=== PATIENT | female | born 1970 | race Caucasian/White ===

== ENCOUNTER 2016-11-12 19:14 | Emergency (ER) | payer SELFPAY ==
[~2016-11-12] VITALS: Ht 157.5 cm; Wt 60.0 kg
[~2016-11-12 19:14] MED LIST: ACID1TAB7 PO; ASPI-621 PO; ATOR10TA PO; AZIT500T4 PO; CARI350T PO; CEFD300C2 PO; CIPR500T3 PO; CLON0.5T PO; CLON1TAB; CYCL-259 PO; CYCL5TAB PO; DIAZ5TAB4 PO; ERGO500017 PO; ESTR0.6246 PO; FLUO20CA19 PO; GABA100C8 PO; GABA300C10 PO; GABA600T2 PO; HYDR-882 PO; LEVO750T26 PO; MECL-76 PO; METR500T PO; NAPR500T3 PO; OMEP20CA9 PO; ONDA4TAB10 PO; ONDA4TAB7 PO; OXYC-223 PO; OXYC-229 PO; OXYC-74; OXYC1TAB7 PO; OXYC5CAP4 PO; PARO10TA3 PO; POTA40LI3 PO; PREG150C PO; PREG75CA PO; SIMV20TA3 PO; SUMA100T4 PO; SUMA50TA3 PO; TIZA4TAB PO; TRAM50TA2 PO; TRAZ100T15 PO; VERA80TA2 PO; VITAMIN B-12 PO; ZIPR20CA2 PO; ZOLP-413 PO; ibuprofen PO
[2016-11-12] MEDS ORDERED: SODIUM CHLORIDE 0.9% 1,000ML IVBOLUS ONE (20:00)
[2016-11-12] MEDS ORDERED: SODIUM CHLORIDE FLUSH 10ML SYR IVF ONE (20:00)
[2016-11-12] MEDS ORDERED: ONDANSETRON 2MG/ML, 2ML IVP ONE (20:00)
[2016-11-12] MEDS ORDERED: DEXTROMETHORPHAN 30 MG/5 ML ORAL SOL PO PRN (20:00)
[2016-11-12] MEDS ORDERED: ONDANSETRON 2MG/ML, 2ML ONE (20:13)
[2016-11-12 20:18] LABS: HEMOGLOBIN 12.9 g/dL (11.7-16.4)
[2016-11-12 20:24] LABS: BLOOD UREA NITROGEN 14 mg/dL (7-18)
[2016-11-12] MEDS ORDERED: POTASSIUM CHLORIDE 20 MEQ TAB.ER.PRT PO ONE (21:00)
[2016-11-12] MEDS ORDERED: POTASSIUM CHLORIDE 20 MEQ TAB.ER.PRT ONE (21:05)
[2016-11-12 21:33] VITALS: BP 121/74
== END 2016-11-12 21:35 | disposition home or self-care (01) ==
LOC: ED 20:18
DX: J20.8 Acute bronchitis due to other specified organisms (principal); K21.9 Gastro-esophageal reflux disease without esophagitis; G43.909 Migraine, unspecified, not intractable, without status migrainosus; Z87.440 Personal history of urinary (tract) infections
CPT/HCPCS: 36415; 71010; 80048; 82040; 85025; 93005; 96361; 96374; 99285; J2405; J7030

== ENCOUNTER 2017-01-07 01:54 | Emergency (ER) | payer MEDICAID ==
[~2017-01-07] VITALS: Ht 157.5 cm; Wt 55.4 kg
[~2017-01-07 01:54] MED LIST changes: -AZIT500T4 PO; +AZIT500T77 PO; -CEFD300C2 PO; +CEFD300C37 PO
[2017-01-07] MEDS ORDERED: PROCHLORPERAZINE 5 MG/ML, 2ML IVPush ONE (02:30)
[2017-01-07] MEDS ORDERED: SODIUM CHLORIDE 0.9% 1,000ML IVBOLUS ONE (02:30)
[2017-01-07] MEDS ORDERED: KETOROLAC 30 MG/1 ML IVPush ONE (02:30)
[2017-01-07] MEDS ORDERED: DIPHENHYDRAMINE 50 MG/ML, 1ML IVPush ONE (02:30)
[2017-01-07] MEDS ORDERED: DIPHENHYDRAMINE 50 MG/ML, 1ML ONE (02:46)
[2017-01-07] MEDS ORDERED: KETOROLAC 30 MG/1 ML ONE (02:46)
[2017-01-07] MEDS ORDERED: PROCHLORPERAZINE 5 MG/ML, 2ML ONE (02:46)
[2017-01-07] MEDS ORDERED: HYDROcodone/APAP 5/325 TABLET PO ONE (04:00)
[2017-01-07] MEDS ORDERED: ZIPRASIDONE 20 MG INJ IM ONE ×2 (04:00→04:24)
[2017-01-07] MEDS ORDERED: HYDROcodone/APAP 5/325 TABLET ONE (04:24)
[2017-01-07 05:28] VITALS: BP 98/66
== END 2017-01-07 05:30 | disposition home or self-care (01) ==
LOC: ED 03:45
DX: M54.5 Low back pain (principal); G43.009 Migraine without aura, not intractable, without status migrainosus; K21.9 Gastro-esophageal reflux disease without esophagitis
CPT/HCPCS: 96361; 96372; 96374; 96375; 99285; J0780; J1200; J3486; J7030

== ENCOUNTER → 2017-03-06 | Outpatient (CLI) | payer MEDICAID ==
[~2017-03-06] MED LIST changes: +GABA-826 PO; -GABA100C8 PO
== END | disposition home or self-care (01) ==
LOC: CFH 07:52
PROVIDERS: ATTEND Surgery
DX: D17.79 Benign lipomatous neoplasm of other sites (principal); E07.9 Disorder of thyroid, unspecified; K43.2 Incisional hernia without obstruction or gangrene; K21.9 Gastro-esophageal reflux disease without esophagitis; I44.2 Atrioventricular block, complete; F32.9 Major depressive disorder, single episode, unspecified; M25.552 Pain in left hip; M25.551 Pain in right hip; R20.0 Anesthesia of skin; Z87.19 Personal history of other diseases of the digestive system; Z90.3 Acquired absence of stomach [part of]; Z90.49 Acquired absence of other specified parts of digestive tract
CPT/HCPCS: 72125; 76700

== ENCOUNTER 2017-04-11 04:20 | Emergency (ER) | payer MEDICAID ==
[~2017-04-11] VITALS: Ht 157.5 cm; Wt 56.3 kg
[~2017-04-11 04:20] MED LIST changes: +AZIT500T5 PO; -AZIT500T77 PO; -OXYC-223 PO; -OXYC-229 PO; +OXYC-296; +OXYC-306 PO; +OXYC-307 PO; -OXYC-74; +OXYC5CAP2 PO; -OXYC5CAP4 PO
[2017-04-11] MEDS ORDERED: ONDANSETRON 2MG/ML, 2ML IVPush ONE (05:00)
[2017-04-11] MEDS ORDERED: SODIUM CHLORIDE FLUSH 10ML SYR IVF ONE (05:00)
[2017-04-11] MEDS ORDERED: ONDANSETRON 2MG/ML, 2ML ONE (05:10)
[2017-04-11] MEDS ORDERED: MORPHINE SULFATE 4 MG/ML, 1ML ONE ×2 (05:10→06:46)
[2017-04-11] MEDS: MORPHINE SULFATE 4 MG/ML, 1ML IVPush PRN ×2 (05:13→06:48)
[2017-04-11 05:50] LABS: WHITE BLOOD COUNT 5.7 x10^3/uL (3.4-10)
[2017-04-11 06:04] LABS: BLOOD UREA NITROGEN 19 mg/dL (7-18)
[2017-04-11 06:15] LABS: IS PT STATUS REG ER OR PRE ER? YES
[2017-04-11 06:50] VITALS: BP 111/78
== END 2017-04-11 07:41 | disposition home or self-care (01) ==
LOC: ED 07:16
DX: R07.89 Other chest pain (principal); G89.29 Other chronic pain; G43.909 Migraine, unspecified, not intractable, without status migrainosus; Z88.0 Allergy status to penicillin
CPT/HCPCS: 36415; 71010; 80048; 82040; 83880; 84484; 85025; 85379; 93005; 96374; 96375; 96376; 99285; J2405

== ENCOUNTER 2017-05-06 19:38 | Inpatient (IN) | payer MEDICAID ==
[~2017-05-06] VITALS: Ht 157.5 cm; Wt 51.0 kg
[2017-05-06] MEDS ORDERED: SODIUM CHLORIDE 0.9% 1,000 ML IV ONE (20:21)
[2017-05-06] MEDS ORDERED: HYDROmorphone 1 MG/ML, 1ML ONE (20:21)
[2017-05-06] MEDS ORDERED: ONDANSETRON 2MG/ML, 2ML ONE (20:22)
[2017-05-06] MEDS: HYDROmorphone 1 MG/ML, 1ML IVPush PRN ×2 (20:26→21:38)
[2017-05-06] MEDS ORDERED: ONDANSETRON 2MG/ML, 2ML IVPush ONE (20:30)
[2017-05-06] MEDS ORDERED: SODIUM CHLORIDE 0.9% 1,000ML IVBOLUS ONE (20:30)
[2017-05-06] MEDS ORDERED: SODIUM CHLORIDE FLUSH 10ML SYR IVF ONE (20:30)
[2017-05-06 20:41] LABS: HEMATOCRIT 35.5 % (34.6-47.8); HEMOGLOBIN 11.8 g/dL (11.7-16.4); WHITE BLOOD COUNT 5.7 x10^3/uL (3.4-10)
[2017-05-06 20:46] LABS: ASPARTATE AMINO TRANSFERASE 16 U/L (15-37); BLOOD UREA NITROGEN 19 mg/dL (7-18)
[2017-05-07] MEDS ORDERED: SODIUM CHLORIDE 0.9% 1,000 ML IV ONE (00:03)
[2017-05-07] MEDS ORDERED: CEFTRIAXONE PMX 1GM/50ML 50 ML ONE (00:57)
[2017-05-07] MEDS: SIMVASTATIN 20 MG TABLET PO SCH ×2 (01:00→20:57)
[2017-05-07] MEDS: CEFTRIAXONE PMX 1GM/50ML 50 ML IV SCH (01:00)
[2017-05-07 02:03] VITALS: BP 119/89
[2017-05-07] MEDS: SODIUM CHLORIDE 0.9% 1,000 ML IV SCH ×2 (02:09→09:03)
[2017-05-07] MEDS: METRONIDAZOLE PMX 500MG/100ML 100 ML IV SCH ×3 (02:49→18:38)
[2017-05-07] MEDS: ONDANSETRON 2MG/ML, 2ML IVPush PRN ×3 (02:49→20:58)
[2017-05-07] MEDS: morphine SULFATE 10 MG/ML, 1ML IVPush PRN ×3 (02:49→20:58)
[2017-05-07] MEDS ORDERED: OMNIPAQUE 350 MG/ML, 100ML BOTTLE ONE (04:48)
[2017-05-07] MEDS: HEPARIN 5,000 UNITS/ML, 1ML SQ SCH ×3 (05:00→20:58)
[2017-05-07 05:24] LABS: BLOOD UREA NITROGEN 14 mg/dL (7-18); HEMATOCRIT 32.9 % (34.6-47.8); HEMOGLOBIN 11.1 g/dL (11.7-16.4); WHITE BLOOD COUNT 5.8 x10^3/uL (3.4-10)
[2017-05-07 05:27] LABS: ASPARTATE AMINO TRANSFERASE 19 U/L (15-37)
[2017-05-07 09:11] VITALS: BP 114/77
[2017-05-07] MEDS ORDERED: POTASSIUM CHLORIDE 40 MEQ in SODIUM CHLORIDE 0.9% 500 ML IV ONE (10:00)
[2017-05-07] MEDS: PREGABALIN 150 MG CAPSULE PO SCH ×2 (10:05→20:57)
[2017-05-07] MEDS: FLUOXETINE 20 MG CAPSULE PO SCH (10:05)
[2017-05-07] MEDS: ASPIRIN 81 MG TABLET EC PO SCH (10:05)
[2017-05-07] MEDS: SUMATRIPTAN 50 MG TABLET PO PRN (11:37)
[2017-05-07 13:15] VITALS: BP 132/97
[2017-05-07 18:50] VITALS: BP 109/73
[2017-05-08 00:22] VITALS: BP 133/93
[2017-05-08] MEDS: morphine SULFATE 10 MG/ML, 1ML IVPush PRN ×3 (00:59→21:25)
[2017-05-08] MEDS: CEFTRIAXONE PMX 1GM/50ML 50 ML IV SCH (00:59)
[2017-05-08] MEDS: SODIUM CHLORIDE 0.9% 1,000 ML IV SCH ×3 (01:00→21:10)
[2017-05-08] MEDS: SUMATRIPTAN 50 MG TABLET PO PRN ×2 (02:43→21:10)
[2017-05-08] MEDS: HEPARIN 5,000 UNITS/ML, 1ML SQ SCH ×3 (03:33→21:10)
[2017-05-08] MEDS: METRONIDAZOLE PMX 500MG/100ML 100 ML IV SCH ×3 (03:47→21:10)
[2017-05-08 05:00] LABS: HEMATOCRIT 32.7 % (34.6-47.8); WHITE BLOOD COUNT 4.9 x10^3/uL (3.4-10)
[2017-05-08 05:11] LABS: BLOOD UREA NITROGEN 6 mg/dL (7-18)
[2017-05-08] MEDS ORDERED: POTASSIUM CHLORIDE 40 MEQ in SODIUM CHLORIDE 0.9% 500 ML IV ONE (06:30)
[2017-05-08 06:39] VITALS: BP 125/86
[2017-05-08] MEDS ORDERED: ACETAMINOPHEN 325 MG TABLET ONE (07:55)
[2017-05-08] MEDS: FLUOXETINE 20 MG CAPSULE PO SCH (07:58)
[2017-05-08] MEDS: ASPIRIN 81 MG TABLET EC PO SCH (07:58)
[2017-05-08] MEDS: PREGABALIN 150 MG CAPSULE PO SCH ×2 (07:58→21:09)
[2017-05-08] MEDS ORDERED: ACETAMINOPHEN 325 MG TABLET PO PRN (08:00)
[2017-05-08 14:15] VITALS: BP 121/77
[2017-05-08] MEDS: ONDANSETRON 2MG/ML, 2ML IVPush PRN ×2 (16:28→21:25)
[2017-05-08] MEDS ORDERED: BUTALB/APAP/CAFFEINE 50MG/325MG/40MG PO PRN (19:30)
[2017-05-08] MEDS: HYDROcodone/APAP 5/325 TABLET PO PRN (19:34)
[2017-05-08 19:48] VITALS: BP 114/78
[2017-05-08] MEDS: SIMVASTATIN 20 MG TABLET PO SCH (21:09)
[2017-05-08] MEDS: BUTALB/APAP/CAFFEINE 50MG/325MG/40MG PO PRN (23:49)
[2017-05-09] MEDS: CEFTRIAXONE PMX 1GM/50ML 50 ML IV SCH (01:36)
[2017-05-09 02:00] VITALS: BP 137/92
[2017-05-09] MEDS: METRONIDAZOLE PMX 500MG/100ML 100 ML IV SCH ×3 (03:49→19:57)
[2017-05-09] MEDS: HEPARIN 5,000 UNITS/ML, 1ML SQ SCH ×3 (05:00→23:01)
[2017-05-09 05:01] LABS: HEMATOCRIT 33.5 % (34.6-47.8); HEMOGLOBIN 11.2 g/dL (11.7-16.4)
[2017-05-09 05:12] LABS: BLOOD UREA NITROGEN 4 mg/dL (7-18)
[2017-05-09] MEDS: SODIUM CHLORIDE 0.9% 1,000 ML IV SCH ×3 (06:26→21:43)
[2017-05-09] MEDS ORDERED: POTASSIUM CHLORIDE 40 MEQ in SODIUM CHLORIDE 0.9% 500 ML IV ONE (07:00)
[2017-05-09 08:41] VITALS: BP 118/78
[2017-05-09] MEDS: ONDANSETRON 2MG/ML, 2ML IVPush PRN (09:05)
[2017-05-09] MEDS: morphine SULFATE 10 MG/ML, 1ML IVPush PRN (09:55)
[2017-05-09] MEDS: ASPIRIN 81 MG TABLET EC PO SCH (09:56)
[2017-05-09] MEDS: PREGABALIN 150 MG CAPSULE PO SCH ×2 (09:56→19:57)
[2017-05-09] MEDS: FLUOXETINE 20 MG CAPSULE PO SCH (09:56)
[2017-05-09] MEDS: BUTALB/APAP/CAFFEINE 50MG/325MG/40MG PO PRN (12:43)
[2017-05-09 13:43] VITALS: BP 130/90
[2017-05-09] MEDS ORDERED: DIPHENHYDRAMINE 50 MG/ML, 1ML IVPush PRN (16:00)
[2017-05-09] MEDS ORDERED: PROCHLORPERAZINE 5 MG/ML, 2ML IVPush PRN (16:00)
[2017-05-09] MEDS: SIMVASTATIN 20 MG TABLET PO SCH (19:57)
[2017-05-09 20:00] VITALS: BP 116/74
[2017-05-09] MEDS: HYDROcodone/APAP 5/325 TABLET PO PRN (21:11)
[2017-05-10] MEDS: CEFTRIAXONE PMX 1GM/50ML 50 ML IV SCH (00:59)
[2017-05-10 02:00] VITALS: BP 106/71
[2017-05-10] MEDS: METRONIDAZOLE PMX 500MG/100ML 100 ML IV SCH ×3 (02:55→20:26)
[2017-05-10] MEDS: HYDROcodone/APAP 5/325 TABLET PO PRN ×4 (04:49→20:43)
[2017-05-10 06:21] LABS: ASPARTATE AMINO TRANSFERASE 13 U/L (15-37); BLOOD UREA NITROGEN 5 mg/dL (7-18)
[2017-05-10 07:37] VITALS: BP 124/82
[2017-05-10] MEDS: SODIUM CHLORIDE 0.9% 1,000 ML IV SCH ×2 (07:45→16:15)
[2017-05-10] MEDS: PREGABALIN 150 MG CAPSULE PO SCH ×2 (07:46→20:26)
[2017-05-10] MEDS: FLUOXETINE 20 MG CAPSULE PO SCH (07:46)
[2017-05-10] MEDS: ASPIRIN 81 MG TABLET EC PO SCH (07:46)
[2017-05-10] MEDS: HEPARIN 5,000 UNITS/ML, 1ML SQ SCH ×2 (07:48→16:14)
[2017-05-10] MEDS: SUMATRIPTAN 50 MG TABLET PO PRN (11:46)
[2017-05-10 14:05] VITALS: BP 130/87
[2017-05-10 19:53] VITALS: BP 110/73
[2017-05-10] MEDS: SIMVASTATIN 20 MG TABLET PO SCH (20:26)
[2017-05-10] MEDS: TIZANIDINE 4MG TABLET PO PRN (20:43)
[2017-05-10] MEDS: ONDANSETRON 2MG/ML, 2ML IVPush PRN (21:32)
[2017-05-11] MEDS: SODIUM CHLORIDE 0.9% 1,000 ML IV SCH ×3 (00:49→17:49)
[2017-05-11] MEDS: HEPARIN 5,000 UNITS/ML, 1ML SQ SCH ×3 (00:49→20:47)
[2017-05-11] MEDS: CEFTRIAXONE PMX 1GM/50ML 50 ML IV SCH (00:50)
[2017-05-11 01:27] VITALS: BP 105/69
[2017-05-11] MEDS: METRONIDAZOLE PMX 500MG/100ML 100 ML IV SCH (04:08)
[2017-05-11 06:53] VITALS: BP 122/84
[2017-05-11] MEDS: ONDANSETRON 2MG/ML, 2ML IVPush PRN (09:01)
[2017-05-11] MEDS: TIZANIDINE 4MG TABLET PO PRN (09:17)
[2017-05-11] MEDS: ASPIRIN 81 MG TABLET EC PO SCH (09:17)
[2017-05-11] MEDS: HYDROcodone/APAP 5/325 TABLET PO PRN ×2 (09:17→20:44)
[2017-05-11] MEDS: PREGABALIN 150 MG CAPSULE PO SCH ×2 (09:17→20:43)
[2017-05-11] MEDS: FLUOXETINE 20 MG CAPSULE PO SCH (09:18)
[2017-05-11] MEDS: SUMATRIPTAN 50 MG TABLET PO PRN ×2 (10:13→20:43)
[2017-05-11 13:19] VITALS: BP 114/90
[2017-05-11] MEDS: SIMVASTATIN 20 MG TABLET PO SCH (20:44)
[2017-05-11 20:46] VITALS: BP 131/85
[2017-05-12 00:06] VITALS: BP 144/95
[2017-05-12] MEDS: HYDROcodone/APAP 5/325 TABLET PO PRN ×3 (00:56→20:07)
[2017-05-12] MEDS: SODIUM CHLORIDE 0.9% 1,000 ML IV SCH ×2 (02:01→09:21)
[2017-05-12] MEDS: HEPARIN 5,000 UNITS/ML, 1ML SQ SCH ×3 (05:30→20:08)
[2017-05-12 05:40] LABS: HEMATOCRIT 31.8 % (34.6-47.8); HEMOGLOBIN 10.6 g/dL (11.7-16.4); WHITE BLOOD COUNT 4.6 x10^3/uL (3.4-10)
[2017-05-12 06:17] LABS: BLOOD UREA NITROGEN 3 mg/dL (7-18)
[2017-05-12 08:35] VITALS: BP 110/73
[2017-05-12] MEDS: ONDANSETRON 2MG/ML, 2ML IVPush PRN (09:19)
[2017-05-12] MEDS: TIZANIDINE 4MG TABLET PO PRN ×2 (09:25→23:17)
[2017-05-12] MEDS: PREGABALIN 150 MG CAPSULE PO SCH ×2 (10:13→20:07)
[2017-05-12] MEDS: FLUOXETINE 20 MG CAPSULE PO SCH (10:13)
[2017-05-12] MEDS: ASPIRIN 81 MG TABLET EC PO SCH (10:13)
[2017-05-12 13:34] VITALS: BP 115/77
[2017-05-12] MEDS ORDERED: NS + 40MEQ KCL 1,000 ML IV SCH (14:00)
[2017-05-12] MEDS: SUMATRIPTAN 50 MG TABLET PO PRN (17:40)
[2017-05-12 19:50] VITALS: BP 119/85
[2017-05-12] MEDS: SIMVASTATIN 20 MG TABLET PO SCH (20:07)
[2017-05-13] MEDS: HYDROcodone/APAP 5/325 TABLET PO PRN ×4 (00:13→20:29)
[2017-05-13 01:15] VITALS: BP 130/91
[2017-05-13 05:06] LABS: BLOOD UREA NITROGEN 2 mg/dL (7-18)
[2017-05-13] MEDS: HEPARIN 5,000 UNITS/ML, 1ML SQ SCH ×3 (05:30→20:33)
[2017-05-13 07:46] VITALS: BP 134/86
[2017-05-13] MEDS: ASPIRIN 81 MG TABLET EC PO SCH (09:04)
[2017-05-13] MEDS: PREGABALIN 150 MG CAPSULE PO SCH ×2 (09:04→20:29)
[2017-05-13] MEDS: FLUOXETINE 20 MG CAPSULE PO SCH (09:04)
[2017-05-13] MEDS: ONDANSETRON 2MG/ML, 2ML IVPush PRN ×2 (09:38→20:28)
[2017-05-13 13:52] VITALS: BP 99/65
[2017-05-13] MEDS ORDERED: DIPHENHYDRAMINE 50 MG/ML, 1ML IVPush PRN (20:00)
[2017-05-13] MEDS ORDERED: ACETAMINOPHEN 325 MG TABLET PO PRN (20:00)
[2017-05-13 20:09] VITALS: BP 132/85
[2017-05-13] MEDS: SIMVASTATIN 20 MG TABLET PO SCH (20:29)
[2017-05-14] MEDS: TIZANIDINE 4MG TABLET PO PRN ×2 (00:17→19:43)
[2017-05-14] MEDS: HYDROcodone/APAP 5/325 TABLET PO PRN ×3 (00:37→22:50)
[2017-05-14 01:27] VITALS: BP 143/92
[2017-05-14] MEDS: ONDANSETRON 2MG/ML, 2ML IVPush PRN ×3 (05:28→19:43)
[2017-05-14] MEDS: SUMATRIPTAN 50 MG TABLET PO PRN (05:28)
[2017-05-14] MEDS: HEPARIN 5,000 UNITS/ML, 1ML SQ SCH ×3 (05:29→21:20)
[2017-05-14 08:48] VITALS: BP 137/92
[2017-05-14] MEDS: ASPIRIN 81 MG TABLET EC PO SCH (09:02)
[2017-05-14] MEDS: FLUOXETINE 20 MG CAPSULE PO SCH (09:02)
[2017-05-14] MEDS: PREGABALIN 150 MG CAPSULE PO SCH ×2 (09:02→21:15)
[2017-05-14] MEDS: BUTALB/APAP/CAFFEINE 50MG/325MG/40MG PO PRN (10:05)
[2017-05-14 14:24] VITALS: BP 138/94
[2017-05-14] MEDS: MOVIPREP POWDER 1 PREP KIT PO SCH ×2 (17:41→21:19)
[2017-05-14 19:51] VITALS: BP 156/98
[2017-05-14] MEDS: HYDROCORTISONE CRM 1%, 30GM TP SCH (21:15)
[2017-05-14] MEDS: SIMVASTATIN 20 MG TABLET PO SCH (21:15)
[2017-05-14] MEDS ORDERED: PROMETHAZINE 25MG TABLET PO ONE (22:30)
[2017-05-15 00:12] VITALS: BP 114/74
[2017-05-15 02:56] VITALS: BP 109/70
[2017-05-15] MEDS: HEPARIN 5,000 UNITS/ML, 1ML SQ SCH ×3 (05:30→21:10)
[2017-05-15 08:27] VITALS: BP 116/78
[2017-05-15] MEDS: HYDROCORTISONE CRM 1%, 30GM TP SCH ×2 (08:41→19:59)
[2017-05-15] MEDS: HYDROcodone/APAP 5/325 TABLET PO PRN ×2 (08:41→19:59)
[2017-05-15] MEDS: PREGABALIN 150 MG CAPSULE PO SCH ×2 (08:41→19:59)
[2017-05-15] MEDS: ONDANSETRON 2MG/ML, 2ML IVPush PRN ×2 (08:41→18:34)
[2017-05-15] MEDS: FLUOXETINE 20 MG CAPSULE PO SCH (08:41)
[2017-05-15] MEDS: ASPIRIN 81 MG TABLET EC PO SCH (08:41)
[2017-05-15] MEDS: BUTALB/APAP/CAFFEINE 50MG/325MG/40MG PO PRN (08:41)
[2017-05-15] MEDS ORDERED: LIDOCAINE 1%, 20ML ONE (15:12)
[2017-05-15] MEDS ORDERED: PROPOFOL 10 MG/ML, 20ML ONE (15:12)
[2017-05-15] MEDS ORDERED: ONDANSETRON 2MG/ML, 2ML IVPush PRN (15:30)
[2017-05-15] MEDS ORDERED: PROMETHAZINE 25 MG/ML, 1ML IV PRN (15:30)
[2017-05-15] MEDS ORDERED: LABETALOL 5MG/ML, 20ML IV PRN (15:30)
[2017-05-15] MEDS ORDERED: HYDROmorphone 1 MG/ML, 1ML IV PRN (15:30)
[2017-05-15] MEDS ORDERED: hydrALAzine 20 MG/ML, 1ML IV PRN (15:30)
[2017-05-15] MEDS ORDERED: ALBUTEROL/IPRATROPIUM 2.5MG/0.5MG, 3 ML NPPB PRN (15:30)
[2017-05-15] MEDS ORDERED: ACETAMINOPHEN 325 MG TABLET PO PRN (15:30)
[2017-05-15] MEDS ORDERED: DIAZEPAM 5 MG/ML, 2ML IVPush PRN (15:30)
[2017-05-15] MEDS ORDERED: OXYcodone 5 MG/5 ML ORAL.SOL UDC PO PRN (15:30)
[2017-05-15] MEDS ORDERED: MEPERIDINE/PF 25MG/0.5ML IVPush PRN (15:30)
[2017-05-15] MEDS ORDERED: MIDAZOLAM 1 MG/ML, 2ML IV PRN (15:30)
[2017-05-15] MEDS ORDERED: FENTANYL PF 100 MCG/2ML IV PRN (15:30)
[2017-05-15] MEDS ORDERED: ONDANSETRON 2MG/ML, 2ML ONE (16:01)
[2017-05-15 17:15] VITALS: BP 100/60
[2017-05-15] MEDS: SIMVASTATIN 20 MG TABLET PO SCH (19:59)
[2017-05-15 20:03] VITALS: BP 113/75
[2017-05-16] MEDS: HYDROcodone/APAP 5/325 TABLET PO PRN ×2 (00:35→08:14)
[2017-05-16] MEDS: ONDANSETRON 2MG/ML, 2ML IVPush PRN ×3 (00:35→19:43)
[2017-05-16] MEDS: TIZANIDINE 4MG TABLET PO PRN (00:35)
[2017-05-16 02:00] VITALS: BP 114/81
[2017-05-16] MEDS: HEPARIN 5,000 UNITS/ML, 1ML SQ SCH (05:30)
[2017-05-16] MEDS: HYDROCORTISONE CRM 1%, 30GM TP SCH ×2 (08:14→20:12)
[2017-05-16] MEDS: FLUOXETINE 20 MG CAPSULE PO SCH (08:14)
[2017-05-16] MEDS: ASPIRIN 81 MG TABLET EC PO SCH (08:14)
[2017-05-16] MEDS: PREGABALIN 150 MG CAPSULE PO SCH ×2 (08:14→19:43)
[2017-05-16 08:51] VITALS: BP 121/83
[2017-05-16 15:49] VITALS: BP 107/74
[2017-05-16] MEDS: BUTALB/APAP/CAFFEINE 50MG/325MG/40MG PO PRN (19:43)
[2017-05-16] MEDS: SIMVASTATIN 20 MG TABLET PO SCH (19:43)
[2017-05-16 20:00] VITALS: BP 122/82
[2017-05-17] MEDS: TIZANIDINE 4MG TABLET PO PRN (00:13)
[2017-05-17] MEDS: HYDROcodone/APAP 5/325 TABLET PO PRN ×3 (00:13→21:13)
[2017-05-17 02:00] VITALS: BP 107/72
[2017-05-17] MEDS: SUMATRIPTAN 50 MG TABLET PO PRN (05:04)
[2017-05-17] MEDS: ONDANSETRON 2MG/ML, 2ML IVPush PRN (05:04)
[2017-05-17] MEDS: PREGABALIN 150 MG CAPSULE PO SCH ×2 (08:14→21:13)
[2017-05-17] MEDS: FLUOXETINE 20 MG CAPSULE PO SCH (08:15)
[2017-05-17 08:45] VITALS: BP 139/93
[2017-05-17] MEDS: HYDROCORTISONE CRM 1%, 30GM TP SCH ×2 (09:00→21:14)
[2017-05-17] MEDS ORDERED: ROCURONIUM 10 MG/ML ONE (12:10)
[2017-05-17] MEDS ORDERED: DEXAMETHASONE 4 MG/ML, 1ML ONE (12:10)
[2017-05-17] MEDS ORDERED: ONDANSETRON 2MG/ML, 2ML ONE ×2 (12:10→13:10)
[2017-05-17] MEDS ORDERED: SUCCINYLCHOLINE 20 MG/ML, 10ML ONE (12:10)
[2017-05-17] MEDS ORDERED: PROPOFOL 10 MG/ML, 20ML ONE (12:10)
[2017-05-17] MEDS ORDERED: LIDOCAINE-MPF 2% ,5ML ONE (12:10)
[2017-05-17] MEDS ORDERED: LABETALOL 5MG/ML, 20ML IV PRN (13:00)
[2017-05-17] MEDS ORDERED: ACETAMINOPHEN 325 MG TABLET PO PRN (13:00)
[2017-05-17] MEDS ORDERED: ONDANSETRON 2MG/ML, 2ML IVPush PRN (13:00)
[2017-05-17] MEDS ORDERED: hydrALAzine 20 MG/ML, 1ML IV PRN (13:00)
[2017-05-17] MEDS ORDERED: ALBUTEROL SULFATE 2.5 MG/3 ML NPPB PRN (13:00)
[2017-05-17] MEDS ORDERED: EPHEDRINE 50 MG/ML, 1ML IVPush PRN (13:00)
[2017-05-17] MEDS ORDERED: FENTANYL PF 100 MCG/2ML ONE (13:09)
[2017-05-17] MEDS: FENTANYL PF 100 MCG/2ML IV PRN ×2 (13:12→13:22)
[2017-05-17 14:00] VITALS: BP 130/87
[2017-05-17 20:00] VITALS: BP 118/77
[2017-05-17] MEDS: SIMVASTATIN 20 MG TABLET PO SCH (21:13)
[2017-05-18] MEDS: ONDANSETRON 2MG/ML, 2ML IVPush PRN ×2 (01:13→08:44)
[2017-05-18] MEDS: BUTALB/APAP/CAFFEINE 50MG/325MG/40MG PO PRN ×2 (01:13→12:01)
[2017-05-18 02:00] VITALS: BP 105/65
[2017-05-18 07:52] VITALS: BP 114/76
[2017-05-18] MEDS: PREGABALIN 150 MG CAPSULE PO SCH ×2 (08:34→20:58)
[2017-05-18] MEDS: FLUOXETINE 20 MG CAPSULE PO SCH (08:35)
[2017-05-18] MEDS: HYDROCORTISONE CRM 1%, 30GM TP SCH ×2 (08:44→20:58)
[2017-05-18] MEDS: HYDROcodone/APAP 5/325 TABLET PO PRN ×3 (08:44→23:12)
[2017-05-18 13:54] VITALS: BP_SYST 116; BP_DIAS 79; BP_DIAS 94
[2017-05-18] MEDS: SODIUM CHLORIDE 0.9% 1,000 ML IV SCH (17:31)
[2017-05-18 20:07] VITALS: BP 118/81
[2017-05-18] MEDS: SIMVASTATIN 20 MG TABLET PO SCH (20:58)
[2017-05-19] MEDS: TIZANIDINE 4MG TABLET PO PRN (00:01)
[2017-05-19 00:47] VITALS: BP 122/82
[2017-05-19] MEDS: SODIUM CHLORIDE 0.9% 1,000 ML IV SCH ×2 (02:27→14:31)
[2017-05-19 07:54] VITALS: BP 122/90
[2017-05-19] MEDS: PREGABALIN 150 MG CAPSULE PO SCH (08:11)
[2017-05-19] MEDS: FLUOXETINE 20 MG CAPSULE PO SCH (08:12)
[2017-05-19] MEDS: HYDROCORTISONE CRM 1%, 30GM TP SCH (08:38)
[2017-05-19 13:04] VITALS: BP 120/83
[2017-05-19] MEDS ORDERED: PROM25TA10 PO (14:55)
[2017-05-19] MEDS ORDERED: DRON2.5C PO (14:56)
[2017-05-19] MEDS ORDERED: HYDR-3240 PO (14:58)
[2017-05-19] MEDS: ONDANSETRON 2MG/ML, 2ML IVPush PRN (15:37)
== END 2017-05-19 16:43 | disposition home or self-care (01) | DRG 392 ==
LOC: ED 23:53 → EDIP 05-07 00:03 → 3NE 05-07 01:45 → 4EST 05-08 17:13
PROVIDERS: ADMIT Internal Medicine; ATTEND Internal Medicine
PROC: 0DJD8ZZ Inspection of Lower Intestinal Tract, Via Natural or Artificial Opening Endoscopic (ICD-10-PCS; principal; 2017-05-15 15:00)
DX: A09 Infectious gastroenteritis and colitis, unspecified (principal); I11.0 Hypertensive heart disease with heart failure; F33.0 Major depressive disorder, recurrent, mild; I50.9 Heart failure, unspecified; K72.90 Hepatic failure, unspecified without coma; M41.9 Scoliosis, unspecified; N30.90 Cystitis, unspecified without hematuria; C44.91 Basal cell carcinoma of skin, unspecified; E86.0 Dehydration; E10.9 Type 1 diabetes mellitus without complications; E78.5 Hyperlipidemia, unspecified; F12.90 Cannabis use, unspecified, uncomplicated; F31.9 Bipolar disorder, unspecified; F43.10 Post-traumatic stress disorder, unspecified; G40.909 Epilepsy, unspecified, not intractable, without status epilepticus; G43.909 Migraine, unspecified, not intractable, without status migrainosus; G89.29 Other chronic pain; I25.10 Atherosclerotic heart disease of native coronary artery without angina pectoris; J44.9 Chronic obstructive pulmonary disease, unspecified; K21.9 Gastro-esophageal reflux disease without esophagitis; M79.7 Fibromyalgia; Z63.0 Problems in relationship with spouse or partner; Z79.4 Long term (current) use of insulin; Z80.0 Family history of malignant neoplasm of digestive organs; Z80.3 Family history of malignant neoplasm of breast; Z80.42 Family history of malignant neoplasm of prostate; Z81.1 Family history of alcohol abuse and dependence; Z81.8 Family history of other mental and behavioral disorders; Z82.49 Family history of ischemic heart disease and other diseases of the circulatory system; Z90.49 Acquired absence of other specified parts of digestive tract; Z95.0 Presence of cardiac pacemaker; Z98.84 Bariatric surgery status
CPT/HCPCS: 36415; 70450; 74177; 76700; 78264; 80048; 80053; 81001; 82040; 83605; 83690; 83735; 84702; 84703; 85025; 87040; 87046; 87086; 87324; 87328; 87329; 87899; 88305; 88312; 89055; 93005; 96361; 96374; 96375; J0696; J1100; J1170; J1644; J2405; J2704; J3010; J3480; J3490; Q0169; Q9967; A9541; C9898; J0330; J0780; J1200; J2270; J7030; J7040

== ENCOUNTER 2017-09-12 21:51 | Emergency (ER) | payer MEDICAID ==
[~2017-09-12] VITALS: Ht 157.5 cm; Wt 52.3 kg
[~2017-09-12 21:51] MED LIST changes: +DRON2.5C PO; +HYDR-3240 PO; +MORP-52 PO; -NAPR500T3 PO; +NAPR500T4 PO; +PROM25TA10 PO
[2017-09-12] MEDS ORDERED: ASPIRIN 81 MG TABLET CHEW PO ONE (23:00)
[2017-09-12] MEDS ORDERED: ONDANSETRON ODT 4 MG PO ONE (23:00)
[2017-09-12] MEDS ORDERED: MECLIZINE CHEWABLE 25 MG TAB PO ONE (23:00)
[2017-09-12 23:10] LABS: BASOPHILS # (AUTO) 0.02 x10^3/uL (0-0.1); BASOPHILS % (AUTO) 1 % (0-1); EOSINOPHILS # (AUTO) 0.06 x10^3/uL (0-0.4); EOSINOPHILS % (AUTO) 2 % (1-7); LYMPHOCYTES # (AUTO) 1.95 x10^3/uL (1-3.4); LYMPHOCYTES % (AUTO) 45 % (22-44); MD NO; MEAN CORPUSCULAR HEMOGLOBIN 31.6 pg (27.0-34.8); MEAN CORPUSCULAR HGB CONC 33.6 g/dL (32.4-35.8); MEAN PLATELET VOLUME 8.3 fL (7.4-10.4); MONOCYTES # (AUTO) 0.35 x10^3/uL (0.2-0.8); MONOCYTES % (AUTO) 8 % (2-9); NEUTROPHILS # (AUTO) 1.93 x10^3/uL (1.8-6.8); NEUTROPHILS % (AUTO) 45 % (42-75); PLATELET COUNT 279 x10^3/uL (130-400); RED BLOOD COUNT 3.88 x10^6/uL (3.82-5.3); RED CELL DISTRIBUTION WIDTH 12.3 % (9.6-15.2)
[2017-09-12] MEDS ORDERED: ASPIRIN 81 MG TABLET CHEW ONE (23:15)
[2017-09-12] MEDS ORDERED: ONDANSETRON ODT 4 MG ONE (23:15)
[2017-09-12] MEDS ORDERED: MECLIZINE CHEWABLE 25 MG TAB ONE (23:15)
[2017-09-12 23:19] VITALS: BP 128/90
[2017-09-12 23:21] LABS: ALANINE AMINOTRANSFERASE 20 U/L (12-78); ALBUMIN 3.6 g/dL (3.4-5.0); ANION GAP 8 mmol/L (5-15); CALCIUM 8.3 mg/dL (8.5-10.1); CHLORIDE 105 mmol/L (98-107); CREATININE 0.53 mg/dL (0.55-1.02)
[2017-09-12 23:25] LABS: ALKALINE PHOSPHATASE 70 U/L (45-117); BILIRUBIN,TOTAL 0.5 mg/dL (0.2-1.0); TOTAL PROTEIN 7.3 g/dL (6.4-8.2); TROPONIN I < 0.015 ng/mL (0.000-0.045)
== END 2017-09-12 23:55 ==
LOC: ED 23:49
DX: R07.2 Precordial pain (principal); R42 Dizziness and giddiness; K21.9 Gastro-esophageal reflux disease without esophagitis; G43.909 Migraine, unspecified, not intractable, without status migrainosus; Z95.0 Presence of cardiac pacemaker
CPT/HCPCS: 36415; 71045; 80053; 84484; 85025; 93005; 99285; Q0162

== ENCOUNTER → 2017-11-07 | Outpatient (CLI) | payer MEDICAID ==
[~2017-11-07] MED LIST changes: +NAPR-685 PO; -NAPR500T4 PO
== END | disposition home or self-care (01) ==
LOC: CFH 07:43
PROVIDERS: ATTEND Internal Medicine Gastroenterology
DX: R10.816 Epigastric abdominal tenderness (principal); R11.2 Nausea with vomiting, unspecified
CPT/HCPCS: 93975

== ENCOUNTER 2017-11-15 12:38 | Emergency (ER) | payer MEDICAID ==
[~2017-11-15] VITALS: Ht 157.5 cm; Wt 50.3 kg
[2017-11-15 12:50] VITALS: BP 123/86
== END 2017-11-15 13:43 | disposition home or self-care (01) ==
LOC: ED 13:25
DX: J02.0 Streptococcal pharyngitis (principal)
CPT/HCPCS: 99283

== ENCOUNTER → 2017-11-20 | Outpatient (CLI) | payer MEDICAID | END | disposition home or self-care (01) | LOC: RAD 08:37 | PROVIDERS: ATTEND Internal Medicine Gastroenterology | DX: K57.10 Diverticulosis of small intestine without perforation or abscess without bleeding (principal); Z98.84 Bariatric surgery status | CPT/HCPCS: 74245 ==

== ENCOUNTER 2017-11-29 18:20 | Emergency (ER) | payer MEDICAID ==
[~2017-11-29] VITALS: Ht 157.5 cm; Wt 51.0 kg
[2017-11-29 19:21] LABS: BASOPHILS # (AUTO) 0.04 x10^3/uL (0-0.1); BASOPHILS % (AUTO) 1 % (0-1); EOSINOPHILS # (AUTO) 0.09 x10^3/uL (0-0.4); EOSINOPHILS % (AUTO) 2 % (1-7); LYMPHOCYTES % (AUTO) 31 % (22-44); MD NO; MEAN CORPUSCULAR HEMOGLOBIN 30.9 pg (27.0-34.8); MEAN CORPUSCULAR HGB CONC 33.4 g/dL (32.4-35.8); MEAN CORPUSCULAR VOLUME 92.5 fL (80-100); MEAN PLATELET VOLUME 8.3 fL (7.4-10.4); MONOCYTES # (AUTO) 0.37 x10^3/uL (0.2-0.8); MONOCYTES % (AUTO) 7 % (2-9); NEUTROPHILS # (AUTO) 3.23 x10^3/uL (1.8-6.8); NEUTROPHILS % (AUTO) 60 % (42-75); PLATELET COUNT 268 x10^3/uL (130-400); RED BLOOD COUNT 4.15 x10^6/uL (3.82-5.3); RED CELL DISTRIBUTION WIDTH 12.6 % (9.6-15.2)
[2017-11-29 19:28] LABS: CULTURE INDICATED? YES; MICROSCOPIC INDICATED
[2017-11-29] MEDS ORDERED: KETOROLAC 30 MG/1 ML ONE (19:28)
[2017-11-29 19:34] LABS: ALANINE AMINOTRANSFERASE 16 U/L (12-78); ALBUMIN 3.9 g/dL (3.4-5.0); ANION GAP 8 mmol/L (5-15); CALCIUM 8.6 mg/dL (8.5-10.1); CHLORIDE 100 mmol/L (98-107)
[2017-11-29 19:36] LABS: ALKALINE PHOSPHATASE 76 U/L (45-117); BILIRUBIN,TOTAL 0.5 mg/dL (0.2-1.0)
[2017-11-29] MEDS ORDERED: DIAZEPAM 5 MG TABLET PO STA (19:56)
[2017-11-29] MEDS ORDERED: DIAZEPAM 5 MG TABLET ONE (19:57)
[2017-11-29] MEDS ORDERED: DIAZEPAM 5 MG TABLET PO ONE (20:30)
[2017-11-29 21:14] VITALS: BP 98/69
== END 2017-11-29 21:17 | disposition home or self-care (01) ==
LOC: ED 20:03
DX: M54.5 Low back pain (principal); G89.29 Other chronic pain; K21.9 Gastro-esophageal reflux disease without esophagitis; R82.99 Other abnormal findings in urine; Z90.49 Acquired absence of other specified parts of digestive tract; Z88.0 Allergy status to penicillin
CPT/HCPCS: 36415; 72110; 80053; 81001; 85025; 87086; 99285

== ENCOUNTER 2017-12-12 21:23 | Emergency (ER) | payer MEDICAID ==
[~2017-12-12] VITALS: Ht 157.5 cm; Wt 48.5 kg
[2017-12-12 22:53] LABS: RAPID INFLUENZA A Negative (Negative); RAPID INFLUENZA B Negative (Negative)
[2017-12-12 23:02] VITALS: BP 142/91
[2017-12-12] MEDS ORDERED: HYDROcodone/APAP 10/325 MG TABLET ONE (23:06)
[2017-12-12] MEDS ORDERED: HYDROcodone/APAP 10/325 MG TABLET PO ONE (23:30)
== END 2017-12-12 23:29 | disposition home or self-care (01) ==
LOC: ED 23:10
DX: B34.9 Viral infection, unspecified (principal); J20.8 Acute bronchitis due to other specified organisms; B97.89 Other viral agents as the cause of diseases classified elsewhere; R09.1 Pleurisy; E11.9 Type 2 diabetes mellitus without complications; G43.909 Migraine, unspecified, not intractable, without status migrainosus; G89.29 Other chronic pain; K21.9 Gastro-esophageal reflux disease without esophagitis; Z90.49 Acquired absence of other specified parts of digestive tract; Z95.0 Presence of cardiac pacemaker; Z88.0 Allergy status to penicillin; Z88.1 Allergy status to other antibiotic agents
CPT/HCPCS: 71046; 87400; 99285

== ENCOUNTER → 2018-01-26 | Outpatient (CLI) | payer MEDICAID ==
[~2018-01-26] MED LIST changes: +OMNIPAQUE 350 MG/ML, 100ML BOTTLE ONE; -POTA40LI3 PO; +POTA40LI7 PO
== END | disposition home or self-care (01) ==
LOC: RAD 12:01
PROVIDERS: ATTEND Anesthesiology
DX: M47.897 Other spondylosis, lumbosacral region (principal); K52.9 Noninfective gastroenteritis and colitis, unspecified
CPT/HCPCS: 72131; 74177; Q9967

== ENCOUNTER 2018-03-13 14:54 | Emergency (ER) | payer BC, MEDICAID, OTHER ==
[~2018-03-13] VITALS: Ht 157.5 cm; Wt 47.0 kg
[~2018-03-13 14:54] MED LIST changes: -OMNIPAQUE 350 MG/ML, 100ML BOTTLE ONE; +TRAZ-137 PO; -TRAZ100T15 PO
[2018-03-13 15:41] LABS: BASOPHILS # (AUTO) 0.02 x10^3/uL (0-0.1); BASOPHILS % (AUTO) 0 % (0-1); EOSINOPHILS # (AUTO) 0.05 x10^3/uL (0-0.4); EOSINOPHILS % (AUTO) 1 % (1-7); LYMPHOCYTES # (AUTO) 1.66 x10^3/uL (1-3.4); LYMPHOCYTES % (AUTO) 35 % (22-44); MD NO; MEAN CORPUSCULAR HEMOGLOBIN 31.2 pg (27.0-34.8); MEAN CORPUSCULAR HGB CONC 33.4 g/dL (32.4-35.8); MEAN CORPUSCULAR VOLUME 93.3 fL (80-100); MEAN PLATELET VOLUME 8.4 fL (7.4-10.4); MONOCYTES # (AUTO) 0.34 x10^3/uL (0.2-0.8); MONOCYTES % (AUTO) 7 % (2-9); NEUTROPHILS # (AUTO) 2.74 x10^3/uL (1.8-6.8); NEUTROPHILS % (AUTO) 57 % (42-75); PLATELET COUNT 249 x10^3/uL (130-400); RED BLOOD COUNT 4.03 x10^6/uL (3.82-5.3); RED CELL DISTRIBUTION WIDTH 12.9 % (9.6-15.2)
[2018-03-13 15:45] LABS: ANION GAP 5 mmol/L (5-15); CALCIUM 8.2 mg/dL (8.5-10.1); CHLORIDE 103 mmol/L (98-107); CREATININE 0.52 mg/dL (0.55-1.02)
[2018-03-13 15:49] LABS: TROPONIN I < 0.015 ng/mL (0.000-0.045)
[2018-03-13 17:02] VITALS: BP 115/91
== END 2018-03-13 17:29 | disposition home or self-care (01) ==
LOC: ED 17:23
DX: R55 Syncope and collapse (principal); M41.9 Scoliosis, unspecified; Z95.0 Presence of cardiac pacemaker
CPT/HCPCS: 36415; 80048; 83735; 84484; 84703; 85025; 93005; 99285

== ENCOUNTER 2018-04-20 14:40 | Emergency (ER) | payer OTHER ==
[~2018-04-20] VITALS: Ht 157.5 cm; Wt 47.0 kg
[2018-04-20 14:42] VITALS: BP 113/81
[2018-04-20 15:27] LABS: BASOPHILS # (AUTO) 0.02 x10^3/uL (0-0.1); BASOPHILS % (AUTO) 0 % (0-1); EOSINOPHILS # (AUTO) 0.04 x10^3/uL (0-0.4); EOSINOPHILS % (AUTO) 1 % (1-7); LYMPHOCYTES % (AUTO) 17 % (22-44); MD NO; MEAN CORPUSCULAR HEMOGLOBIN 30.8 pg (27.0-34.8); MEAN CORPUSCULAR HGB CONC 33.7 g/dL (32.4-35.8); MEAN CORPUSCULAR VOLUME 91.4 fL (80-100); MEAN PLATELET VOLUME 8.4 fL (7.4-10.4); MONOCYTES # (AUTO) 0.46 x10^3/uL (0.2-0.8); MONOCYTES % (AUTO) 6 % (2-9); NEUTROPHILS # (AUTO) 5.92 x10^3/uL (1.8-6.8); NEUTROPHILS % (AUTO) 77 % (42-75); PLATELET COUNT 283 x10^3/uL (130-400); RED CELL DISTRIBUTION WIDTH 12.4 % (9.6-15.2)
[2018-04-20 15:39] LABS: ALBUMIN 3.7 g/dL (3.4-5.0); ANION GAP 6 mmol/L (5-15); CALCIUM 8.7 mg/dL (8.5-10.1); CHLORIDE 104 mmol/L (98-107); CREATININE 0.63 mg/dL (0.55-1.02)
[2018-04-20 15:43] LABS: TROPONIN I < 0.015 ng/mL (0.000-0.045)
== END 2018-04-20 17:06 ==
LOC: ED 16:00
DX: S00.11XA Contusion of right eyelid and periocular area, initial encounter (principal); R55 Syncope and collapse; E11.9 Type 2 diabetes mellitus without complications; K21.9 Gastro-esophageal reflux disease without esophagitis; G43.909 Migraine, unspecified, not intractable, without status migrainosus; Z88.0 Allergy status to penicillin; Z88.1 Allergy status to other antibiotic agents; Z88.8 Allergy status to other drugs, medicaments and biological substances; W13.3XXA Fall through floor, initial encounter; Y93.89 Activity, other specified; Y92.89 Other specified places as the place of occurrence of the external cause; Y99.8 Other external cause status
CPT/HCPCS: 36415; 70450; 72125; 80048; 82040; 84484; 85025; 93005; 99285

== ENCOUNTER 2018-07-04 11:23 | Emergency (ER) | payer MEDICAID, OTHER ==
[~2018-07-04] VITALS: Ht 157.5 cm; Wt 48.0 kg
[~2018-07-04 11:23] MED LIST changes: -ASPI-621 PO; +ASPI81TA45 PO; +HYDR-3653 PO; -HYDR-882 PO
[2018-07-04] MEDS ORDERED: HYDROcodone/APAP 10/325 MG TABLET ONE (12:00)
[2018-07-04] MEDS ORDERED: OXYcodone/APAP 10/325MG TABLET PO ONE (12:00)
[2018-07-04 12:25] LABS: HCG UR SG 1.033 (1.003-1.030)
[2018-07-04 12:29] LABS: MICROSCOPIC INDICATED
[2018-07-04 12:52] LABS: CULTURE INDICATED? NO
[2018-07-04 14:07] VITALS: BP 102/62
== END 2018-07-04 14:10 | disposition home or self-care (01) ==
LOC: ED 13:10
DX: S39.012A Strain of muscle, fascia and tendon of lower back, initial encounter (principal); R07.89 Other chest pain; M25.512 Pain in left shoulder; E11.9 Type 2 diabetes mellitus without complications; K21.9 Gastro-esophageal reflux disease without esophagitis; F32.9 Major depressive disorder, single episode, unspecified; W01.0XXA Fall on same level from slipping, tripping and stumbling without subsequent striking against object, initial encounter; Y93.89 Activity, other specified; Y92.009 Unspecified place in unspecified non-institutional (private) residence as the place of occurrence of the external cause; Y99.8 Other external cause status
CPT/HCPCS: 71046; 72110; 81001; 81025; 99284

== ENCOUNTER 2018-07-05 16:11 | Emergency (ER) | payer MEDICAID ==
[~2018-07-05] VITALS: Ht 157.5 cm; Wt 49.1 kg
[2018-07-05] MEDS ORDERED: ASPIRIN 81 MG TABLET CHEW PO ONE (16:30)
[2018-07-05] MEDS ORDERED: ASPIRIN 81 MG TABLET CHEW ONE (16:50)
[2018-07-05 17:09] LABS: BASOPHILS # (AUTO) 0.02 x10^3/uL (0-0.1); BASOPHILS % (AUTO) 0 % (0-1); EOSINOPHILS # (AUTO) 0.07 x10^3/uL (0-0.4); EOSINOPHILS % (AUTO) 1 % (1-7); LYMPHOCYTES # (AUTO) 1.85 x10^3/uL (1-3.4); LYMPHOCYTES % (AUTO) 26 % (22-44); MD NO; MEAN CORPUSCULAR HEMOGLOBIN 31.1 pg (27.0-34.8); MEAN CORPUSCULAR HGB CONC 34.1 g/dL (32.4-35.8); MEAN CORPUSCULAR VOLUME 91.2 fL (80-100); MEAN PLATELET VOLUME 8.1 fL (7.4-10.4); MONOCYTES # (AUTO) 0.55 x10^3/uL (0.2-0.8); MONOCYTES % (AUTO) 8 % (2-9); NEUTROPHILS # (AUTO) 4.52 x10^3/uL (1.8-6.8); NEUTROPHILS % (AUTO) 65 % (42-75); PLATELET COUNT 268 x10^3/uL (130-400); RED BLOOD COUNT 4.02 x10^6/uL (3.82-5.3); RED CELL DISTRIBUTION WIDTH 13.1 % (9.6-15.2)
[2018-07-05 17:16] LABS: ALANINE AMINOTRANSFERASE 17 U/L (12-78); ALBUMIN 3.8 g/dL (3.4-5.0); ANION GAP 7 mmol/L (5-15); CALCIUM 8.7 mg/dL (8.5-10.1); CHLORIDE 108 mmol/L (98-107); CREATININE 0.55 mg/dL (0.55-1.02)
[2018-07-05 17:21] LABS: ALKALINE PHOSPHATASE 72 U/L (45-117); BILIRUBIN,TOTAL 0.4 mg/dL (0.2-1.0); TOTAL PROTEIN 7.4 g/dL (6.4-8.2); TROPONIN I < 0.015 ng/mL (0.000-0.045)
[2018-07-05] MEDS ORDERED: HYDROmorphone 2 MG/ML, 1ML ONE (17:53)
[2018-07-05] MEDS ORDERED: HYDROmorphone 2 MG/ML, 1ML IM ONE (18:00)
[2018-07-05 18:41] VITALS: BP 119/82
== END 2018-07-05 18:45 | disposition home or self-care (01) ==
LOC: ED 17:13
DX: S20.212A Contusion of left front wall of thorax, initial encounter (principal); M25.512 Pain in left shoulder; E11.9 Type 2 diabetes mellitus without complications; W01.0XXA Fall on same level from slipping, tripping and stumbling without subsequent striking against object, initial encounter; Y93.89 Activity, other specified; Y92.89 Other specified places as the place of occurrence of the external cause; Y99.8 Other external cause status
CPT/HCPCS: 36415; 71101; 80053; 84484; 85025; 93005; 96372; 99284; J1170

== ENCOUNTER 2018-08-05 09:33 | Emergency (ER) | payer MEDICAID ==
[~2018-08-05] VITALS: Ht 157.5 cm; Wt 52.3 kg
[2018-08-05 09:39] VITALS: BP 122/79
--- NOTE | 2018-08-05 09:47 | NUR ---
PT WOKE WITH SORE THROAT YESTERDAY. "I FEEL LIKE IT'S STREP THROAT". PT STATES SHE CAN TAKE AZITHROMYCIN. IS ALLERGIC TO MANY ANTIBIOTICS.
[2018-08-05] MEDS ORDERED: DEXAMETHASONE 4 MG/ML, 1ML PO ONE (10:00)
[2018-08-05] MEDS ORDERED: DEXAMETHASONE 4 MG TABLET ONE (10:36)
== END 2018-08-05 11:26 | disposition home or self-care (01) ==
LOC: ED 09:58
DX: J02.8 Acute pharyngitis due to other specified organisms (principal); B97.89 Other viral agents as the cause of diseases classified elsewhere; K21.9 Gastro-esophageal reflux disease without esophagitis; G43.909 Migraine, unspecified, not intractable, without status migrainosus; Z95.0 Presence of cardiac pacemaker; E11.9 Type 2 diabetes mellitus without complications
CPT/HCPCS: 87081; 87880; 99283; J1100

== ENCOUNTER 2018-08-29 16:08 | Emergency (ER) | payer MEDICAID ==
[~2018-08-29] VITALS: Ht 157.5 cm; Wt 51.0 kg
[~2018-08-29 16:08] MED LIST changes: -GABA600T2 PO; +GABA600T7 PO
[2018-08-29 17:35] VITALS: BP 112/70
== END 2018-08-29 17:38 | disposition home or self-care (01) ==
LOC: ED 17:05
DX: S93.492A Sprain of other ligament of left ankle, initial encounter (principal); E11.9 Type 2 diabetes mellitus without complications; F32.9 Major depressive disorder, single episode, unspecified; K21.9 Gastro-esophageal reflux disease without esophagitis; Z88.6 Allergy status to analgesic agent; Z88.1 Allergy status to other antibiotic agents; Z88.0 Allergy status to penicillin; Z88.8 Allergy status to other drugs, medicaments and biological substances; Z95.0 Presence of cardiac pacemaker; W01.0XXA Fall on same level from slipping, tripping and stumbling without subsequent striking against object, initial encounter; Y93.01 Activity, walking, marching and hiking; Y92.009 Unspecified place in unspecified non-institutional (private) residence as the place of occurrence of the external cause; Y99.8 Other external cause status
CPT/HCPCS: 99283

== ENCOUNTER → 2018-09-13 | Outpatient (CLI) | payer MEDICAID | END | disposition home or self-care (01) | LOC: PETCFH 10:11 | PROVIDERS: ATTEND Surgery | DX: K59.00 Constipation, unspecified (principal); R11.2 Nausea with vomiting, unspecified; R14.0 Abdominal distension (gaseous) | CPT/HCPCS: 78264; A9541 ==

== ENCOUNTER 2018-11-25 01:23 | Emergency (ER) | payer MEDICAID, OTHER ==
[~2018-11-25] VITALS: Ht 157.5 cm; Wt 51.0 kg
[2018-11-25 01:25] VITALS: BP 148/94
[2018-11-25] MEDS ORDERED: KETOROLAC 30 MG/1 ML ONE (02:56)
[2018-11-25] MEDS ORDERED: METHOCARBAMOL 750 MG TABLET ONE (02:56)
[2018-11-25] MEDS ORDERED: KETOROLAC 30 MG/1 ML IM ONE (03:00)
[2018-11-25] MEDS ORDERED: METHOCARBAMOL 750 MG TABLET PO ONE (03:00)
== END 2018-11-25 04:09 | disposition home or self-care (01) ==
LOC: ED 04:03
DX: S16.1XXA Strain of muscle, fascia and tendon at neck level, initial encounter (principal); M54.6 Pain in thoracic spine; K21.9 Gastro-esophageal reflux disease without esophagitis; G43.909 Migraine, unspecified, not intractable, without status migrainosus; E11.9 Type 2 diabetes mellitus without complications; V49.59XA Passenger injured in collision with other motor vehicles in traffic accident, initial encounter; Y93.89 Activity, other specified; Y92.410 Unspecified street and highway as the place of occurrence of the external cause; Y99.8 Other external cause status
CPT/HCPCS: 71046; 72072; 73060; 96372; 99283; J1885

== ENCOUNTER 2018-12-31 22:24 | Emergency (ER) | payer OTHER ==
[~2018-12-31] VITALS: Ht 157.5 cm; Wt 53.0 kg
[2018-12-31 22:28] VITALS: BP 121/75
--- NOTE | 2018-12-31 23:30 | NUR ---
pt back to room from lobby
[2019-01-01] MEDS ORDERED: SUMATRIPTAN 6MG/0.5ML SQ ONE ×2 (00:27→00:30)
== END 2019-01-01 01:42 | disposition home or self-care (01) ==
LOC: ED 23:43
DX: H53.2 Diplopia (principal); E11.9 Type 2 diabetes mellitus without complications; G43.909 Migraine, unspecified, not intractable, without status migrainosus
CPT/HCPCS: 70450; 96372; 99284; J3030

== ENCOUNTER 2019-11-08 15:58 | Emergency (ER) | payer OTHER ==
[~2019-11-08] VITALS: Ht 157.5 cm; Wt 55.0 kg
[~2019-11-08 15:58] MED LIST changes: +AZIT500T10 PO; -AZIT500T5 PO; +SIMV20TA19 PO; -SIMV20TA3 PO; -TIZA4TAB PO; +TIZA4TAB2 PO; -TRAZ-137 PO; +TRAZ-175 PO; -VERA80TA2 PO; +VERA80TA25 PO
--- NOTE | 2019-11-08 16:33 | NUR ---
PT BIB P/VFOR INCREASING SOB OVER LAST FEW WEEKS WITH CHRONIC SOB. PT WAS SENT BY FISH FILLETER AFTER PACER REVEALED MULTIPLE PVC'S . PT DENIES CP, COUGH, FEVERS, CHILLS, AND BODY ACHES. PT ON MONITOR. WAITNG FOR ORDERS.
[2019-11-08 16:54] LABS: MICROSCOPIC AUTO
[2019-11-08 16:59] LABS: CULTURE INDICATED? YES
[2019-11-08] MEDS ORDERED: SODIUM CHLORIDE FLUSH 10ML SYR IVF ONE (17:00)
[2019-11-08 17:14] LABS: BASOPHILS # (AUTO) 0.02 x10^3/uL (0-0.1); BASOPHILS % (AUTO) 0 % (0-1); EOSINOPHILS # (AUTO) 0.06 x10^3/uL (0-0.4); EOSINOPHILS % (AUTO) 1 % (1-7); LYMPHOCYTES # (AUTO) 1.51 x10^3/uL (1-3.4); LYMPHOCYTES % (AUTO) 31 % (22-44); MD NO; MEAN CORPUSCULAR HEMOGLOBIN 31.3 pg (27.0-34.8); MEAN CORPUSCULAR HGB CONC 33.5 g/dL (32.4-35.8); MEAN CORPUSCULAR VOLUME 93.5 fL (80-100); MONOCYTES # (AUTO) 0.38 x10^3/uL (0.2-0.8); MONOCYTES % (AUTO) 8 % (2-9); NEUTROPHILS # (AUTO) 2.97 x10^3/uL (1.8-6.8); NEUTROPHILS % (AUTO) 60 % (42-75); PLATELET COUNT 281 x10^3/uL (130-400); RED CELL DISTRIBUTION WIDTH 12.8 % (9.6-15.2)
[2019-11-08 17:18] LABS: ALANINE AMINOTRANSFERASE 16 U/L (12-78); ALBUMIN 3.8 g/dL (3.4-5.0); ANION GAP 7 mmol/L (5-15); CALCIUM 9.1 mg/dL (8.5-10.1); CHLORIDE 105 mmol/L (98-107)
[2019-11-08 17:24] LABS: ALKALINE PHOSPHATASE 88 U/L (45-117); BILIRUBIN,TOTAL 0.4 mg/dL (0.2-1.0); CREATININE 0.47 mg/dL (0.55-1.02); T4 (THYROXINE) 8.9 mcg/dL (4.8-13.9); TOTAL PROTEIN 7.9 g/dL (6.4-8.2); TROPONIN I < 0.015 ng/mL (0.000-0.045)
--- NOTE | 2019-11-08 17:32 | NUR ---
TASK RN: PT RESTING ON GURNEY. RAMIREZ. AWAITING LABS.
--- NOTE | 2019-11-08 18:15 | NUR ---
CHART UP FOR PT RECHECK. PT AWARE.
[2019-11-08 19:30] VITALS: BP 141/81
== END 2019-11-08 19:33 | disposition home or self-care (01) ==
LOC: ED 16:35
DX: I49.3 Ventricular premature depolarization (principal); R07.9 Chest pain, unspecified; R30.0 Dysuria; E11.9 Type 2 diabetes mellitus without complications; G89.29 Other chronic pain; K21.9 Gastro-esophageal reflux disease without esophagitis; G43.909 Migraine, unspecified, not intractable, without status migrainosus; Z95.0 Presence of cardiac pacemaker; Z90.49 Acquired absence of other specified parts of digestive tract; Z90.89 Acquired absence of other organs; Z90.710 Acquired absence of both cervix and uterus; Z90.722 Acquired absence of ovaries, bilateral
CPT/HCPCS: 36415; 71045; 80053; 81001; 83735; 84436; 84443; 84484; 85025; 87086; 87147; 93005; 99285

== ENCOUNTER → 2020-04-10 | Outpatient (CLI) | payer OTHER | END | disposition home or self-care (01) | LOC: CFH 13:14 | PROVIDERS: ATTEND Internal Medicine Cardiovascular Disease | DX: I95.9 Hypotension, unspecified (principal); R55 Syncope and collapse | CPT/HCPCS: 93306 ==

== ENCOUNTER 2020-05-08 11:25 | Emergency (ER) | payer OTHER ==
[~2020-05-08] VITALS: Ht 157.5 cm; Wt 55.0 kg
[2020-05-08] MEDS ORDERED: DIAZEPAM 5 MG TABLET PO ONE (12:00)
[2020-05-08] MEDS ORDERED: DIAZEPAM 5 MG TABLET ONE (12:10)
--- NOTE | 2020-05-08 12:15 | NUR ---
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
[2020-05-08 14:09] VITALS: BP 123/90
== END 2020-05-08 14:18 | disposition home or self-care (01) ==
LOC: ED 12:14
DX: G44.211 Episodic tension-type headache, intractable (principal); K21.9 Gastro-esophageal reflux disease without esophagitis; G89.29 Other chronic pain; E11.9 Type 2 diabetes mellitus without complications; M54.2 Cervicalgia; R11.0 Nausea; Z90.49 Acquired absence of other specified parts of digestive tract
CPT/HCPCS: 93005; 99283

== ENCOUNTER 2020-06-23 21:18 | Emergency (ER) | payer OTHER ==
[~2020-06-23] VITALS: Ht 157.5 cm; Wt 51.0 kg
[2020-06-23 21:20] VITALS: BP 134/92
[2020-06-23] MEDS ORDERED: OXYcodone/APAP 5/325MG TABLET PO ONE (21:30)
[2020-06-23] MEDS ORDERED: OXYcodone/APAP 5/325MG TABLET ONE (21:30)
[2020-06-23] MEDS ORDERED: KETOROLAC 30 MG/1 ML ONE (21:30)
[2020-06-23] MEDS ORDERED: KETOROLAC 30 MG/1 ML IM ONE (21:30)
== END 2020-06-23 22:33 | disposition home or self-care (01) ==
LOC: ED 22:08
DX: S93.491A Sprain of other ligament of right ankle, initial encounter (principal); E11.9 Type 2 diabetes mellitus without complications; K21.9 Gastro-esophageal reflux disease without esophagitis; G89.29 Other chronic pain; G43.909 Migraine, unspecified, not intractable, without status migrainosus; Z95.0 Presence of cardiac pacemaker; X50.1XXA Overexertion from prolonged static or awkward postures, initial encounter; Y93.89 Activity, other specified; Y92.89 Other specified places as the place of occurrence of the external cause; Y99.8 Other external cause status
CPT/HCPCS: 73610; 73630; 96372; 99284; J1885